=== PATIENT | female | born 1940 | race Two or more races ===

== ENCOUNTER 2021-07-10 15:30 | Emergency (ER) | payer MEDICARE, OTHER ==
[~2021-07-10] VITALS: Ht 154.9 cm; Wt 72.6 kg
[2021-07-10] MEDS ORDERED: cloNIDine HCL 0.1 MG TAB PO ONE (16:00)
[2021-07-10] MEDS ORDERED: SODIUM CHLORIDE 0.9% 1,000 ML IV ONE (16:30)
[2021-07-10] MEDS ORDERED: ONDANSETRON HCL 4 MG/2 ML VIAL IV ONE ×2 (16:30→21:45)
[2021-07-10] MEDS ORDERED: MORPHINE SULFATE 4 MG/ML SYR/VIAL IV ONE (16:30)
[2021-07-10 16:36] LABS: Basophils # (auto) 0 10 ^3/uL (0-0.2); Basophils % (auto) 0.5 % (0.0-2.0); Eosinophils # (auto) 0.2 10 ^3/uL (0-0.8); Eosinophils % (auto) 2.7 % (0.0-7.0); Hematocrit 42.4 % (36.0-46.0); Hemoglobin 14.7 g/dL (12.2-16.2); Lymphocytes % (auto) 32.1 % (10.0-50.0); Mean Corpuscular Hemoglobin 34.6 pg (28.0-32.0); Mean Corpuscular Hgb Conc. 34.7 g/dL (32.0-36.0); Mean Corpuscular Volume 99.9 fL (80.0-100.0); Monocytes # (auto) 0.5 10 ^3/uL (0-1.3); Monocytes % (auto) 8.2 % (0.0-12.0); Neutrophils # (auto) 3.6 10 ^3/uL (1.6-8.6); Neutrophils % (auto) 56.5 % (37.0-80.0); Nucleated Red Blood Cells % 0.1 %; Red Blood Cells 4.24 10^6/uL (4.0-5.20); Red Cell Distribution Width 13.2 % (11.8-14.3); White Blood Cell 6.3 10^3/uL (4.4-10.8)
[2021-07-10 16:47] LABS: Albumin 3.6 g/dL (3.4-5.0); Calcium 8.9 mg/dL (8.5-10.1); Potassium 3.8 mmol/L (3.5-5.1)
[2021-07-10 16:51] LABS: BUN/Creatinine Ratio 15.5; Bilirubin, Total 0.7 mg/dL (0.2-1.0)
[2021-07-10 17:15] LABS: Magnesium 2.7 mg/dL (1.6-2.6)
[2021-07-10 21:00] VITALS: BP 133/80
[2021-07-10] MEDS ORDERED: FAMOTIDINE (10MG/ML) 2ML VL IV ONE (21:45)
[2021-07-10] MEDS ORDERED: LIDOCAINE VISCOUS 2% 15ML UD PO ONE (21:45)
[2021-07-11] MEDS ORDERED: FAMO20TA10 PO (01:13)
[2021-07-11] MEDS ORDERED: SUCR1SUS10 PO (01:13)
[2021-07-11] MEDS ORDERED: ACETAMINOPHEN 325 MG TAB PO ONE (02:00)
== END 2021-07-11 02:30 | disposition home or self-care (01) ==
LOC: ER 15:30
DX: K57.90 Diverticulosis of intestine, part unspecified, without perforation or abscess without bleeding (principal); R74.8 Abnormal levels of other serum enzymes; I10 Essential (primary) hypertension; N28.89 Other specified disorders of kidney and ureter; Z90.710 Acquired absence of both cervix and uterus; Z20.822 Contact with and (suspected) exposure to COVID-19
CPT/HCPCS: 36415; 71045; 74176; 76700; 80053; 83690; 83735; 84443; 84484; 85025; 87426; 93005; 96361; 96374; 96375; 99285; J2405; J3490; J7030

== ENCOUNTER 2021-12-21 13:39 | Inpatient (IN) | payer OTHER ==
[~2021-12-21] VITALS: Ht 154.9 cm; Wt 73.7 kg
[2021-12-21] MEDS ORDERED: KETOROLAC TROMETH 30 MG/ML 1ML VIAL IV ONE (13:45)
[2021-12-21] MEDS ORDERED: SODIUM CHLORIDE 0.9% 1,000 ML IV ONE (13:45)
[2021-12-21 14:41] LABS: Basophils # (auto) 0 10 ^3/uL (0-0.2); Basophils % (auto) 0.7 % (0.0-2.0); Eosinophils # (auto) 0.2 10 ^3/uL (0-0.8); Eosinophils % (auto) 2.9 % (0.0-7.0); Hematocrit 45.4 % (36.0-46.0); Lymphocytes # (auto) 1.6 10 ^3/uL (0.4-5.4); Mean Corpuscular Hemoglobin 33.3 pg (28.0-32.0); Mean Corpuscular Hgb Conc. 33.1 g/dL (32.0-36.0); Mean Corpuscular Volume 100.6 fL (80.0-100.0); Monocytes # (auto) 0.4 10 ^3/uL (0-1.3); Neutrophils # (auto) 3.1 10 ^3/uL (1.6-8.6); Neutrophils % (auto) 58.4 % (37.0-80.0); Nucleated Red Blood Cells % 0.1 %; Red Blood Cells 4.51 10^6/uL (4.0-5.20); Red Cell Distribution Width 13.4 % (11.8-14.3); White Blood Cell 5.3 10^3/uL (4.4-10.8)
[2021-12-21 14:55] LABS: INR 0.97 (0.9-1.15); Partial Thromboplastin Time 25.7 sec (24.6-33.4)
[2021-12-21 14:57] LABS: Albumin 3.6 g/dL (3.4-5.0); Calcium 8.8 mg/dL (8.5-10.1); Magnesium 2.4 mg/dL (1.6-2.6); Potassium 3.9 mmol/L (3.5-5.1)
[2021-12-21 15:00] LABS: BUN/Creatinine Ratio 14.9; Bilirubin, Total 0.6 mg/dL (0.2-1.0); Total Protein 7.3 g/dL (6.4-8.2)
[2021-12-21] MEDS ORDERED: LABETALOL HCL 5 MG/ML 4ML SYRINGE IV ONE (21:30)
[2021-12-21] MEDS ORDERED: MORPHINE SULFATE INJ 2 MG/ml SYRG IV PRN ×2 (22:30→23:45)
[2021-12-21] MEDS ORDERED: hydrALAZINE HCL 20 MG/ML VL IV ONE (22:30)
[2021-12-21] MEDS ORDERED: ONDANSETRON HCL 4 MG/2 ML VIAL IV PRN (22:30)
[2021-12-21] MEDS ORDERED: DOCUSATE SOD 100 MG CAP PO PRN (22:30)
[2021-12-21] MEDS ORDERED: ACETAMINOPHEN 325 MG TAB PO PRN (22:30)
[2021-12-21] MEDS ORDERED: HYDROcodone-ACET 5/325MG TAB PO PRN (22:30)
[2021-12-21] MEDS: SODIUM CHLOR 0.9% PF (SALINE LOCK) 10ML VIAL/SYR IV SCH (22:50)
[2021-12-21] MEDS ORDERED: NITROGLYCERIN 0.4 MG SL TAB SL PRN (23:45)
[2021-12-22] MEDS: METOPROLOL TARTRATE 25 MG TAB PO SCH ×3 (00:18→21:38)
[2021-12-22 04:10] LABS: Urine Bacteria FEW /hpf (None Seen); Urine Blood Negative /uL (Negative); Urine Hyaline Cast FEW /lpf (0 - 2); Urine Mucus FEW (None Seen); Urine Specific Gravity 1.008 (1.001-1.035); Urine WBC 16 /hpf (0 - 5)
[2021-12-22 05:45] LABS: Albumin 3.2 g/dL (3.4-5.0); Calcium 8.3 mg/dL (8.5-10.1); Potassium 3.8 mmol/L (3.5-5.1)
[2021-12-22 05:49] LABS: BUN/Creatinine Ratio 18.2; Basophils # (auto) 0 10 ^3/uL (0-0.2); Bilirubin, Total 0.6 mg/dL (0.2-1.0); Hematocrit 41.5 % (36.0-46.0); Lymphocytes # (auto) 0.9 10 ^3/uL (0.4-5.4); Monocytes # (auto) 0.4 10 ^3/uL (0-1.3); Total Protein 6.3 g/dL (6.4-8.2)
[2021-12-22 05:52] LABS: Basophils % (auto) 0.3 % (0.0-2.0); Eosinophils # (auto) 0.1 10 ^3/uL (0-0.8); Eosinophils % (auto) 0.7 % (0.0-7.0); Hemoglobin 14.1 g/dL (12.2-16.2); Mean Corpuscular Hemoglobin 34.9 pg (28.0-32.0); Mean Corpuscular Hgb Conc. 33.9 g/dL (32.0-36.0); Mean Corpuscular Volume 103.2 fL (80.0-100.0); Monocytes % (auto) 5.6 % (0.0-12.0); Neutrophils # (auto) 5.8 10 ^3/uL (1.6-8.6); Neutrophils % (auto) 81.4 % (37.0-80.0); Red Blood Cells 4.02 10^6/uL (4.0-5.20); Red Cell Distribution Width 13.8 % (11.8-14.3); White Blood Cell 7.1 10^3/uL (4.4-10.8)
[2021-12-22] MEDS: SODIUM CHLOR 0.9% PF (SALINE LOCK) 10ML VIAL/SYR IV SCH ×3 (06:07→21:38)
[2021-12-22] MEDS ORDERED: FAMOTIDINE (10MG/ML) 2ML VL IV SCH (10:00)
[2021-12-22] MEDS: ENOXAPARIN SOD 40 MG/0.4 ML SYRINGE SC SCH (10:18)
[2021-12-22] MEDS ORDERED: ONDANSETRON HCL 4 MG/2 ML VIAL IV PRN (11:45)
[2021-12-22] MEDS: ATORVASTATIN 20 MG TAB PO SCH ×2 (12:00→21:38)
[2021-12-22] MEDS: ASPirin 81 mg TAB PO SCH (12:43)
[2021-12-22] MEDS: levoFLOXacin 500MG 100 ML IV SCH (12:43)
[2021-12-22 15:49] VITALS: BP 152/79
[2021-12-22] MEDS: hydrALAZINE HCL 20 MG/ML VL IV PRN ×2 (16:03→23:13)
[2021-12-22] MEDS ORDERED: ATOR20TA50 PO (16:38)
[2021-12-22] MEDS ORDERED: NITR0.4S29 SL (16:38)
[2021-12-22] MEDS ORDERED: LOSA-69 PO (16:38)
[2021-12-22] MEDS ORDERED: ASPI325T4 PO (16:38)
[2021-12-22] MEDS ORDERED: METO25TA5 PO (16:38)
[2021-12-22 17:00] VITALS: BP 137/64
[2021-12-22 22:00] VITALS: BP 180/80
[2021-12-22] MEDS ORDERED: LORazepam 2MG/ML-1ML VIAL IV PRN (22:30)
[2021-12-23 05:00] VITALS: BP 144/65
[2021-12-23] MEDS: SODIUM CHLOR 0.9% PF (SALINE LOCK) 10ML VIAL/SYR IV SCH ×3 (05:43→21:39)
[2021-12-23 08:00] VITALS: BP 137/69
[2021-12-23] MEDS: ENOXAPARIN SOD 40 MG/0.4 ML SYRINGE SC SCH (09:38)
[2021-12-23] MEDS: ASPirin 81 mg TAB PO SCH (09:38)
[2021-12-23] MEDS: levoFLOXacin 500MG 100 ML IV SCH (09:38)
[2021-12-23] MEDS: METOPROLOL TARTRATE 25 MG TAB PO SCH ×2 (09:39→21:39)
[2021-12-23] MEDS: LOSARTAN POTASSIUM 50 MG TAB PO SCH (09:39)
[2021-12-23] MEDS: PANTOPRAZOLE 40 MG TAB PO SCH (09:39)
[2021-12-23] MEDS ORDERED: METO25TA5 PO (10:40)
[2021-12-23] MEDS ORDERED: LEVO500T31 PO (10:40)
[2021-12-23] MEDS: hydrALAZINE HCL 20 MG/ML VL IV PRN (12:40)
[2021-12-23 13:00] VITALS: BP 156/80
[2021-12-23 13:29] VITALS: BP 156/80
[2021-12-23] MEDS: ATORVASTATIN 20 MG TAB PO SCH (21:39)
[2021-12-23 22:00] VITALS: BP 153/77
[2021-12-24 05:00] VITALS: BP 156/64
[2021-12-24] MEDS: SODIUM CHLOR 0.9% PF (SALINE LOCK) 10ML VIAL/SYR IV SCH (06:18)
[2021-12-24] MEDS: hydrALAZINE HCL 20 MG/ML VL IV PRN (08:43)
[2021-12-24] MEDS: levoFLOXacin 500MG 100 ML IV SCH (08:43)
[2021-12-24 09:00] VITALS: BP 170/72
[2021-12-24] MEDS: PANTOPRAZOLE 40 MG TAB PO SCH (09:53)
[2021-12-24] MEDS: ENOXAPARIN SOD 40 MG/0.4 ML SYRINGE SC SCH (09:53)
[2021-12-24] MEDS: ASPirin 81 mg TAB PO SCH (09:53)
[2021-12-24] MEDS: METOPROLOL TARTRATE 25 MG TAB PO SCH (09:53)
[2021-12-24] MEDS: LOSARTAN POTASSIUM 50 MG TAB PO SCH (09:53)
== END 2021-12-24 10:50 | disposition home health service (06) | DRG 312 ==
LOC: ER 13:39 → EDBD 13:39 → TELE 23:43 → TELE-CENTR 12-22 15:30
PROVIDERS: ADMIT Nurse Practitioner Family; ATTEND Internal Medicine
DX: R55 Syncope and collapse (principal); N39.0 Urinary tract infection, site not specified; M48.02 Spinal stenosis, cervical region; K21.9 Gastro-esophageal reflux disease without esophagitis; E78.5 Hyperlipidemia, unspecified; F41.9 Anxiety disorder, unspecified; I10 Essential (primary) hypertension; Z20.822 Contact with and (suspected) exposure to COVID-19; I45.10 Unspecified right bundle-branch block; Z83.3 Family history of diabetes mellitus; Z90.710 Acquired absence of both cervix and uterus; Z88.0 Allergy status to penicillin; Z90.49 Acquired absence of other specified parts of digestive tract
CPT/HCPCS: 36415; 70450; 70551; 71045; 72125; 80053; 81001; 83735; 83880; 84484; 85025; 85610; 85730; 87086; 93005; 93306; 95819; 96361; 96374; 96375; 97163; G0378; J1885; J1956; J3490